=== PATIENT | female | born 1990 | race Caucasian/White ===

== ENCOUNTER 2017-09-27 14:57 | Emergency (ER) | payer OTHER ==
[~2017-09-27] VITALS: Ht 170.2 cm; Wt 59.0 kg
[2017-09-27] MEDS ORDERED: IBUP400 (15:08)
[2017-09-27] MEDS ORDERED: IBUP800 PO (15:43)
[2017-09-27] MEDS ORDERED: CYCL10 PO (15:43)
== END 2017-09-27 15:57 | disposition home or self-care (01) ==
LOC: ER 14:57
DX: S39.012A Strain of muscle, fascia and tendon of lower back, initial encounter (principal); X50.9XXA Other and unspecified overexertion or strenuous movements or postures, initial encounter
CPT/HCPCS: 99282; J7030